=== PATIENT | male | born 1925 | race Caucasian/White ===

== ENCOUNTER → 2016-03-05 | Outpatient (REF) | payer MEDICARE ==
[~2016-03-05] MED LIST: AC325T PO; ACET500L36 PO; AMOX1TAB12 PO; ANTI1CAP5 PO; ASPI-860 PO; ASPI325T4 PO; BETA1TAB15 PO; CALC-140 PO; CALC-28 PO; CALC-50 PO; CARB1TAB6 PO; DEXT30SU2 PO; DICL100G13 TOP; DNPZ10T PO; DOCU-243 PO; LEVO25TA5 PO; LEVO75TA4 PO; MAGN250T7 PO; MULT-1034 PO; MULT1TAB56; NF-TYLARTH PO; OXB5T PO; OXYB5TAB9 PO; POLY17PO6 PO; PRED20TA PO; VIT1TAB.9 PO; [UNRECOGNIZED DRUG - CODE] PO
== END ==
LOC: LAB 14:54
PROVIDERS: ATTEND Family Medicine
DX: R53.1 Weakness (principal)
CPT/HCPCS: 82553; 84484

== ENCOUNTER → 2016-05-20 | Outpatient (REF) | payer MEDICARE | LOC: LAB 09:55 | PROVIDERS: ATTEND Family Medicine | DX: C61 Malignant neoplasm of prostate (principal); E03.9 Hypothyroidism, unspecified | CPT/HCPCS: 84153; 84443 ==

== ENCOUNTER → 2016-06-28 | Outpatient (REF) | payer MEDICARE | LOC: LAB 11:58 | PROVIDERS: ATTEND Family Medicine | DX: E03.9 Hypothyroidism, unspecified (principal) | CPT/HCPCS: 84443 ==